=== PATIENT | female | born 1970 | race Two or more races ===

== ENCOUNTER 2023-03-31 18:48 | Emergency (ER) | payer SELFPAY ==
[2023-03-31 18:53] VITALS: BP 108/72; PULSE 89; RESP 18; TEMP 36.4; O2SAT 97
[2023-03-31 19:43] LABS: Appearance Urine Cloudy (Clear); Bilirubin Urine 1+ (Negative); Blood Urine Trace-intact (Negative); Color Urine Orange (Yellow); Glucose Urine Trace (Negative); Ketones Urine 1+ (Negative); Leukocyte Esterase Urine Negative (Negative); Nitrite Urine Positive (Negative); Protein Urine 1+ (Negative); Specific Gravity Urine 1.025 (1.000-1.030)
[2023-03-31 20:15] LABS: Bacteria Urine Moderate; Fine Granular Casts Urine Few; RBC Urine 0-2 (0-2); Squamous Epithelial Cell Urine Moderate (None-Few)
[2023-03-31 20:49] VITALS: BP 125/78; PULSE 86; RESP 16
[2023-03-31 20:51] VITALS: BP 125/78; PULSE 86; RESP 16; O2SAT 96
--- NOTE | 2023-04-01 00:10 | ED_ITS ---
HPI - General Adult General Date Seen: 03/31/23 Chief complaint: Unspecified Complaint, Adult Stated complaint: Nausea, headaches, incontinence Time Seen by Provider: 03/31/23 19:02 History of Present Illness HPI narrative: History is obtained through a phone based [employer] This is a pleasant 52-year-old female with a no significant past medical history who presents to the ER today for evaluation of dysuria, suprapubic pain ongoing for the past 2-3 days. Also today with development of mild bilateral flank pain and mild headache. She is mildly nauseous but not vomiting. No fevers or chills. She is not having any significant lower abdominal pain. No diarrhea. Her primary concern is the dysuria and urgency. She has been taking [id number] Pyridium for that and as a result has had yellow-orange colored urine. She has not noticed any hematuria. She has a mild headache which is improved after she took Tylenol at home. She does not need any further medication. No associated confusion, neck stiffness, or other neurologic symptoms. Related Data Previous Rx's Medication Instructions Recorded cephalexin 500 mg capsule 500 mg PO Q12H 10 days #20 caps 03/31/23 Allergies Allergy/AdvReac Type Severity Reaction Status Date / Time No Known Drug Allergies Allergy Verified 03/31/23 19:24 Review of Systems Narrative: As above, otherwise negative PFSH PFS Social History Smoking Status: Never smoker Do you use any of these nicotine containing products: None Non-prescribed substance use: denies use service: No Exam Narrative: Exam Narrative: Constitutional: Appears well-developed and well-nourished. Alert. Conversant through identity management developer. Non toxic. HENT: Head: Atraumatic. Nose: Nose normal. Mouth/Throat: Oral mucosa is clear and moist. no trismus. Pharynx normal. Tonsils symmetric. No tonsillar enlargement, erythema, or exudate. Eyes: Conjunctivae normal. EOM normal. Pupils equal, round, and reactive to light. No scleral icterus. Neck: Normal range of motion. Neck supple. No tracheal deviation present. No stiffness or meningismus. Cardiovascular: Normal rate, regular rhythm. No gallop. No friction rub. No murmur heard. Symmetric radial artery pulses Pulmonary/Chest: Effort normal. No stridor. No respiratory distress. No wheezes. No rales. No rhonchi . No tenderness. Abdominal: Soft. Bowel sounds normal. No distension. No mass. Mild suprapubic tenderness. Mild bilateral CVA tenderness. No rebound. No guarding. Musculoskeletal: RUE: Normal range of motion. No tenderness. No deformity LUE: Normal range of motion. No tenderness. No deformity RLE: Normal range of motion. No edema. No tenderness. No deformity LLE: Normal range of motion. No edema. No tenderness. No deformity Neurological: Alert and oriented to person, place, and time. Normal strength. CN II-VII intact. No sensory deficit. GCS eye subscore is 4. GCS verbal subscore is 5. GCS motor subscore is 6. Normal coordination Skin: Skin is warm and dry. No rash noted. No pallor. Normal capillary refill. Psychiatric: Normal mood. Normal affect. Const: Vital Signs, click to edit/add: Vital Signs - 24 hr 03/31/23 18:53 03/31/23 20:49 03/31/23 20:51 Temperature 97.6 F Pulse Rate [Pulse Oximeter] 89 86 86 Respiratory Rate 18 16 16 Blood Pressure [Ri ght Forearm] 108/72 125/78 125/78 Pulse Oximetry 97 96 Oxygen Delivery Me thod Room Air Room Air Course Vital Signs Vital signs: Initial Vital Signs Temperature 97.6 F 03/31/23 18:53 Temperature Source Temporal Artery Scan 03/31/23 18:53 Pulse Rate 89 03/31/23 18:53 Pulse Rhythm Regular 03/31/23 18:53 Respiratory Rate 18 03/31/23 18:53 Blood Pressure 108/72 03/31/23 18:53 Blood Pressure Mean 84 03/31/23 18:53 Blood Pressure Position Sitting 03/31/23 18:53 Pulse Oximetry 97 03/31/23 18:53 Oxygen Delivery Method Room Air 03/31/23 18:53 Vital Signs Temperature 97.6 F 03/31/23 18:53 Pulse Rate 89 03/31/23 18:53 Respiratory Rate 18 03/31/23 18:53 Blood Pressure 108/72 03/31/23 18:53 Pulse Oximetry 97 03/31/23 18:53 Oxygen Delivery Method Room Air 03/31/23 18:53 Temperature 97.6 F 03/31/23 18:53 Pulse Rate 86 03/31/23 20:51 Respiratory Rate 16 03/31/23 20:51 Blood Pressure 125/78 03/31/23 20:51 Pulse Oximetry 96 03/31/23 20:51 Oxygen Delivery Method Room Air 03/31/23 20:51 Medical Decision Making [facility] Narrative Medical decision making narrative: This patient presents for evaluation of dysuria, suprapubic pain, bilateral flank pain, also associated with mild nausea and headache. This clinically is consistent with a urinary tract infection. Urinalysis confirms the infection. There has been no fever, or significant abdominal pain. She has mild associated flank pain and also constitutional symptoms of headache and nausea. She is not febrile. She is hemodynamically stable. There is no clinical evidence of appendicitis, colitis, diverticulitis or any intraabdominal catastrophe. The patient will be started on antibiotics for the infection. Because of the associated flank pain will treat her with a 10 day course of antibiotics for possible pyelonephritis. She is not otherwise clinically ill appearing, febrile, and I do not think she requires admission for IV antibiotics. Reviewed precautions for Return if increasing pain, vomiting, fever, or inability to tolerate the oral antibiotic. Follow up with primary physician is indicated if not improving in 2-3 days. Lab Data Labs: Lab Results 03/31/23 Range/Units 19:25 Urine Color [place] A (Yellow) Urine Appearance Cloudy A (Clear) Urine pH 5.0 (5.0-8.5) Ur Specific [place] 1.025 (1.000-1.030) Urine Protein 1+ A (Negative) Urine Glucose (UA) Trace A (Negative) Urine Ketones 1+ A (Negative) Urine Blood Trace-intact A (Negative) Urine Nitrite Positive A (Negative) Urine Bilirubin 1+ A (Negative) Urine Urobilinogen 2.0 A (0.2-1.0) Ur Leukocyte Esterase Negative (Negative) Urine RBC 0-2 (0-2) Urine WBC 2-5 (0-5) Ur Squamous Epith Cells Moderate A (None-Few) Urine Bacteria Moderate A (None) Fine Granular Casts Few A (None) Discharge Plan Discharge Clinical Impression: UTI (urinary tract infection) Patient Disposition: Home, Self-Care Condition: Stable Instructions: Urinary Tract Infection in Women (DC) Additional Instructions: Please come back to the ER right away if you have any concerns, especially high fever, uncontrolled nausea and vomiting, bad headache, confusion, or weakness. Prescriptions: New cephalexin 500 mg capsule 500 mg PO Q12H 10 Days Qty: 20 0RF Follow Up/Referrals: Provider,Not a Local [Primary Care Provider] - Stand Alone Forms: [employer] Info Instructions
== END 2023-03-31 20:50 | disposition home or self-care (01) ==
PROVIDERS: Emergency Provider Emergency Medicine
DX: N39.0 Urinary tract infection, site not specified (principal)
CPT/HCPCS: 81001; 87086; 87186; 99283